=== PATIENT | female | born 1980 | race Two or more races ===

== ENCOUNTER → 2017-12-19 | Outpatient (CLI) | payer OTHER | END | disposition home or self-care (01) | LOC: US 08:46 | DX: Z34.82 Encounter for supervision of other normal pregnancy, second trimester (principal); Z3A.21 21 weeks gestation of pregnancy | CPT/HCPCS: 76805 ==

== ENCOUNTER 2018-03-20 11:14 | Observation (INO) | payer OTHER | END 2018-03-20 12:10 | disposition home or self-care (01) | LOC: 3 SO LND 11:14 | PROVIDERS: ADMIT Family Medicine; ATTEND Family Medicine | DX: O24.419 Gestational diabetes mellitus in pregnancy, unspecified control (principal); Z3A.33 33 weeks gestation of pregnancy | CPT/HCPCS: G0378; G0379; 59025 ==

== ENCOUNTER → 2018-03-20 | Outpatient (CLI) | payer OTHER ==
--- NOTE | 2018-03-20 16:57 | RAD ---
Ultrasound biophysical profile, 03/20/2018: HISTORY: Gestational diabetes The limited exam of the gravid uterus demonstrates a single fetus in a cephalic orientation. The heart rate is 139 bpm. The placenta lies anteriorly. A normal amount of amniotic fluid is present with the RETA calculated at 11.8. The weight was estimated at 5 pounds and 0 ounces +/- 12 ounces. The EDC based on today's measurements is 05/03/2018, and correlates well with the EDC of 04/30/2018 established on the 12/19/2017 ultrasound exam. The following biophysical profile scores were obtained: breathing movements-2 motion-2 tone-2 Amniotic fluid volume-2 Total score-8 out of 8: IMPRESSION: The ultrasound component of the biophysical profile score is 8 out of 8. Electronically signed by: Yves Otto MD (03/20/2018 4:53 PM) [facility]
== END | disposition home or self-care (01) ==
LOC: US 10:05
PROVIDERS: ATTEND Family Medicine
DX: O24.419 Gestational diabetes mellitus in pregnancy, unspecified control (principal); Z3A.38 38 weeks gestation of pregnancy
CPT/HCPCS: 76819

== ENCOUNTER 2018-04-03 16:02 | Observation (INO) | payer OTHER ==
--- NOTE | 2018-04-03 17:07 | RAD ---
Ultrasound biophysical profile, 04/03/2018: HISTORY: Gestational diabetes The limited exam of the gravid uterus demonstrates a single fetus in a cephalic orientation. The heart rate is 121 bpm. The placenta lies anteriorly. The amniotic fluid index is 11.5 which is within normal limits. The weight was estimated at 6 pounds and 5 ounces +/- 15. The following biophysical profile scores were obtained: breathing movements-2 motion-2 tone-2 Amniotic fluid volume-2 Total score-8 out of 8 IMPRESSION: The ultrasound component of the biophysical profile score is 8 out of 8. Electronically signed by: Yves Otto MD (04/03/2018 5:04 PM) [facility]
== END 2018-04-03 18:12 | disposition home or self-care (01) ==
LOC: US 16:02 → 3 SO LND 16:43
PROVIDERS: ADMIT Family Medicine; ATTEND Family Medicine
DX: O24.419 Gestational diabetes mellitus in pregnancy, unspecified control (principal); Z3A.35 35 weeks gestation of pregnancy
CPT/HCPCS: 76819; G0378; G0379; 59025

== ENCOUNTER 2018-04-17 11:31 | Observation (INO) | payer OTHER ==
--- NOTE | 2018-04-17 12:51 | RAD ---
Ultrasound biophysical profile, 04/17/2018: HISTORY: Gestational diabetes The limited exam of the gravid uterus demonstrates a single fetus in a cephalic orientation. The heart rate is 123 bpm. The weight was estimated at 7 pounds and 9 ounces +/- 18 ounces. The placenta lies anteriorly. Amniotic fluid index was calculated at 11.0. The following biophysical profile scores were obtained: breathing movements-2 motion-2 tone-2 Amniotic fluid volume-2 Total score-8 out of 8: IMPRESSION: The ultrasound component of the biophysical profile score is 8 out of 8. Electronically signed by: Yves Otto MD (04/17/2018 12:48 PM) [facility]
== END 2018-04-17 12:35 | disposition home or self-care (01) ==
LOC: 3 SO LND 11:31
PROVIDERS: ADMIT Family Medicine; ATTEND Family Medicine
DX: O24.419 Gestational diabetes mellitus in pregnancy, unspecified control (principal); Z3A.37 37 weeks gestation of pregnancy
CPT/HCPCS: 76819; G0378; G0379

== ENCOUNTER 2018-04-24 11:42 | Observation (INO) | payer OTHER ==
--- NOTE | 2018-04-24 16:18 | RAD ---
Ultrasound biophysical profile History: Gestational diabetes. Weekly biophysical profile. Comparison: Same examination April 17, 2018. Findings: Ultrasound biophysical profile was performed. Score is as follows: motion, 2 of 2. breathing, 2 of 2. tone, 2 of 2. Qualitative amniotic fluid volume, 2 of 2. Total score is 8 of 8. presentation is cephalic. Placenta is anterior. heart rate is 133 bpm. Amniotic fluid index is 10.3 cm. BPD is 9.41 cm corresponding to 38 weeks 2 days. HC is 33.5 cm, corresponding to 38 weeks 6 days. AC is 34.74 cm, corresponding to 39 weeks 5 days. FL is 7.75 cm, corresponding to 39 weeks 4 days. HC/AC ratio is 0.95, within normal limits. Average ultrasound age is 39 weeks 1 day. Estimated date of delivery based on current measurements is April 30, 2018. Estimated weight is 3768 +/- 558 g which is at 84 percentile. Clinical gestational age is 38 weeks 0 days. Impression: Biophysical profile score is 8 of 8. Electronically signed by: Joel Griffin MD (04/24/2018 4:15 PM) [facility]
== END 2018-04-24 13:10 | disposition home or self-care (01) ==
LOC: 3 SO LND 11:42
PROVIDERS: ADMIT Family Medicine; ATTEND Family Medicine
DX: O24.410 Gestational diabetes mellitus in pregnancy, diet controlled (principal); Z3A.38 38 weeks gestation of pregnancy
CPT/HCPCS: 76819; G0378; G0379

== ENCOUNTER 2018-05-01 14:58 | Observation (INO) | payer OTHER ==
--- NOTE | 2018-05-01 16:59 | RAD ---
Ultrasound biophysical profile exam, 05/01/2018: HISTORY: Gestational diabetes The limited exam of the gravid uterus demonstrates a single fetus in a cephalic orientation. The heart rate is 135 bpm. The weight was estimated at 8 pounds and 8 ounces +/- 20 ounces. The placenta lies anteriorly. The following biophysical profile scores were obtained: breathing movements-2 motion-2 tone-2 Amniotic fluid volume-2 Total score-8 out of 8 IMPRESSION: The ultrasound component of the biophysical profile score is 8 out of 8. Electronically signed by: Yves Otto MD (05/01/2018 4:55 PM) [facility]
== END 2018-05-01 17:25 | disposition home or self-care (01) ==
LOC: 3 SO LND 14:58
PROVIDERS: ADMIT Family Medicine; ATTEND Family Medicine
DX: O24.429 Gestational diabetes mellitus in childbirth, unspecified control (principal); Z37.9 Outcome of delivery, unspecified; Z3A.39 39 weeks gestation of pregnancy
CPT/HCPCS: 76819; G0378; G0379; 59025

== ENCOUNTER 2018-05-01 20:17 | Inpatient (IN) | payer OTHER ==
[~2018-05-01] VITALS: Ht 152.4 cm; Wt 97.6 kg
[2018-05-01] MEDS ORDERED: IV RINGERS,LACTATED 1000ML 1,000 ML IV SCH (20:18)
[2018-05-01] MEDS ORDERED: ONDANSETRON PF 4 MG/2 ML VIAL. IV PRN (20:30)
[2018-05-01] MEDS ORDERED: LIDOCAINE 1% PF 30 ML VIAL. INJ PRN (20:30)
[2018-05-01] MEDS ORDERED: CITRIC ACID/SODIUM CITRATE 30 ML SOLUTION. PO PRN (20:30)
[2018-05-01] MEDS ORDERED: OXYTOCIN 30 UNIT/500 ML PREMIX 500 ML IV PRN (20:30)
[2018-05-01] MEDS ORDERED: fentaNYL PF VIAL 100 MCG/2 ML VIAL IV PRN ×2 (20:30)
[2018-05-01] MEDS ORDERED: TERBUTALINE 1 MG/ML VIAL. SQ PRN (20:30)
[2018-05-01] MEDS ORDERED: ACETAMINOPHEN 325 MG TABLET. PO PRN (20:30)
[2018-05-01] MEDS ORDERED: BUTORPHANOL 2 MG/ML VIAL. IV PRN (20:30)
[2018-05-01] MEDS ORDERED: 0.9 % SODIUM CHLORIDE 10 ML DISP.SYRIN. IV PRN (20:30)
[2018-05-01 20:44] VITALS: BP 150/83
[2018-05-01] MEDS ORDERED: DINOPROSTONE 10 MG SUPP.VAG VG ONE (21:00)
[2018-05-01 21:10] LABS: BASO # 0.1 x10^3/uL (0.0-0.2); BASO % 1 % (0-3); EOS # 0.1 x10^3/uL (0.0-0.7); EOS % 1 % (0-3); HEMATOCRIT 35.6 % (36.0-47.0); HEMOGLOBIN 12.4 g/dL (12.0-15.5); LYMPH # 1.8 x10^3/uL (1.0-4.8); LYMPH % 21 % (24-48); MEAN CORPUSCULAR HEMOGLOBIN 30 pg (25-35); MEAN CORPUSCULAR HGB CONC 35 g/dL (31-37); MEAN CORPUSCULAR VOLUME 85 fL (79-100); MONO # 0.5 x10^3/uL (0.0-1.1); MONO % 6 % (0-9); NEUT # 6.2 x10^3uL (1.8-7.7); NEUT % 71 % (31-73); PLATELET COUNT 211 x10^3/uL (140-400); RED CELL DISTRIBUTION WIDTH 14.8 % (11.5-14.5); WHITE BLOOD COUNT 8.7 x10^3/uL (4.0-11.0)
--- NOTE | 2018-05-02 07:02 | PDOC1 ---
OB - History Hx of Present Care: Good Care Ultrasounds: Normal mid trimester US Obstetrical Complications: Gestational Diabetes Medical Complications: None Past Family/Social History * Past Medical, Surgical, Family and Obstetric Histories reviewed from chart. Blood Type: B+ Rubella: Immune RPR/VDRL: Negative GBS Status: Negative HBsAG: Negative OB - Chief Complaint & HPI Date of Admission: Date of Admission: May 01, 2018 at 20:17 Chief Complaint/History : 3 Para: 2 EDC: May 08, 2018 EGA: 39.1 Reason for admission: induction of labor Indication for induction: medical complication Admission Nurse Assessment Rev: No OB - Admission Exam Physical Exam Vitals: VS - Last 72 Hours, by Label Date Time Temp Pulse Resp B/P (MAP) Pulse Ox O2 Delivery O2 Flow Rate FiO2 05/01/18 20:44 98.1 62 18 150/83 (105) Room Air 98.1 HEENT: Normal, Nasal Mucosa Normal, Oropharynx Normal, Moist Membranes, Fontanelles Normal Heart: Regular Rate, No Murmurs, No Gallops, No Rubs Lungs: Clear, Equal Abdomen: Gravid Extremities: Normal Pulses, No tenderness or swelling Reflexes: Normal Cervical Dilatation: None Effacement: 50% Station: -3 Membranes: Intact Accelerations: Accelerations Present Decelerations: No decelerations Short Term Variability: Present Senior Living Variability: Moderate Contractions on Admission: None Date/Time Contractions Began;: 05/02/18 Frequency of Contractions: 0500 A/P Pt is a 38yo admitted for IOL 2/2 GDM 1)IOL- s/p Cervadil last night. Pt went into labor early this morning. CEFM 2)Pain mgmt- pt not interested in pain medication at this time 3)GBS negative 4)Pt is planning on 5)GDM- BS diet controlled JORI SUTTON MD May 02, 2018 07:02
--- NOTE | 2018-05-02 07:42 | PDOC ---
VAGINAL DELIVERY DATE DATE: 05/02/18 TIME 0717 : 3 Para: 3 EDC: May 08, 2018 EGA: 39.1 VAGINAL DELIVERY: VTX VACCUM ASSISTED: No PLACENTA: Spontaneous 8 and 9 SEX: Male WEIGHT Weight 3505g or 7 pound 12oz Nuchal Cord: Yes (body cord), Times 1, Tight Amniotic Fluid: Clear PAIN: Natural EPISIOTOMY: No EXTENSION: Yes (3rd degree perianal) REPAIRED WITH 3'0" vicryl EBL 350cc COMPLICATIONS None CONDITION Stable CR[employer] MACHINE O[employer] Dr. Sutton Signs of Intrauterine Infectio: None Shoulder Dystocia: No DIAGNOSIS Pt is a 38yo G3 now P3 s/p induced vaginal delivery at 39.1wga 2/2 GDM 1)- with 3rd degree perianal repair 2)Pain mgmt- will have ibuprofen available for pain 3)GBS negative 4)Pt is planning on 5)GDM- BS diet controlled JORI SUTTON MD May 02, 2018 07:42
[2018-05-02] MEDS ORDERED: DOCUSATE SODIUM 100 MG CAPSULE. PO PRN (07:45)
[2018-05-02] MEDS ORDERED: SIMETHICONE 80 MG TAB.CHEW PO PRN (07:45)
[2018-05-02] MEDS ORDERED: ZOLPIDEM 5 MG TABLET. PO PRN (07:45)
[2018-05-02] MEDS ORDERED: MAG HYDROX/ALUMINUM HYD/SIMETH 30 ML ORAL.SUSP PO PRN (07:45)
[2018-05-02] MEDS ORDERED: MMR per PROTOCOL. MC PRN (07:45)
[2018-05-02] MEDS ORDERED: ACETAMINOPHEN 325 MG TABLET. PO PRN (07:45)
[2018-05-02] MEDS ORDERED: HYDROCORTISONE 1% TOPICAL OINTMENT 30GM TUBE. TP PRN (07:45)
[2018-05-02] MEDS ORDERED: diphenhydrAMINE HCL 25 MG CAPSULE PO PRN (07:45)
[2018-05-02] MEDS ORDERED: IBUPROFEN 400 MG TABLET. PO PRN (07:45)
[2018-05-02] MEDS ORDERED: PHENYLEPH/MINERAL OIL/PETROLAT RECTAL OINTMENT 28GM TUBE. RC PRN (07:45)
[2018-05-02] MEDS ORDERED: MAGNESIUM HYDROXIDE 2,400 MG/30 ML ORAL.SUSP. PO PRN (07:45)
[2018-05-02] MEDS ORDERED: OXYTOCIN 30 UNIT/500 ML PREMIX 500 ML IV PRN ×2 (07:45→08:00)
[2018-05-02] MEDS ORDERED: BENZOCAINE 20% TOPICAL AEROSOL SPRAY 57GM CAN. TP PRN (07:45)
[2018-05-02] MEDS ORDERED: 0.9 % SODIUM CHLORIDE 10 ML DISP.SYRIN. IV PRN (07:45)
[2018-05-02 10:54] VITALS: BP 128/83
[2018-05-02] MEDS: IBUPROFEN 400 MG TABLET. PO PRN (16:22)
[2018-05-02] MEDS ORDERED: DIPHTH,PERTUSS(ACELL),TET TOX 0.5 ML DISP.SYRIN. VAX IM ONE (17:15)
[2018-05-02 19:30] VITALS: BP 122/68
[2018-05-03 00:30] VITALS: BP 126/68
[2018-05-03 04:43] LABS: HEMATOCRIT 31.9 % (36.0-47.0); HEMOGLOBIN 10.9 g/dL (12.0-15.5); RED BLOOD COUNT 3.76 x10^6/uL (3.50-5.40); RED CELL DISTRIBUTION WIDTH 15.2 % (11.5-14.5); WHITE BLOOD COUNT 10.4 x10^3/uL (4.0-11.0)
[2018-05-03 05:38] VITALS: BP 123/72
[2018-05-03] MEDS ORDERED: FERROUS SULFATE 325 MG TABLET. PO SCH (08:00)
--- NOTE | 2018-05-03 08:40 | PDOC ---
OB Progress Note Date of Service 05/03/18 Time of Evaluation 0800 Date: 05/02/18 Time: 07 Notes Mom doing well. is going well. Pain is well controlled. No BM yet. Lochia is about the same as a period OB VITAL SIGNS: Temperature (97.9), Blood Pressure (123/72), Pulse (65), O2 Sat (97% RA) Lab Laboratory Tests Test 05/01/18 20:55 05/03/18 04:15 White Blood Count 8.7 x10^3/uL (4.0-11.0) 10.4 x10^3/uL (4.0-11.0) Red Blood Count 4.20 x10^6/uL (3.50-5.40) 3.76 x10^6/uL (3.50-5.40) Hemoglobin 12.4 g/dL (12.0-15.5) 10.9 g/dL (12.0-15.5) Hematocrit 35.6 % (36.0-47.0) 31.9 % (36.0-47.0) Mean Corpuscular Volume 85 fL (79-100) 85 fL (79-100) Mean Corpuscular Hemoglobin 30 pg (25-35) 29 pg (25-35) Mean Corpuscular Hemoglobin Concent 35 g/dL (31-37) 34 g/dL (31-37) Red Cell Distribution Width 14.8 % (11.5-14.5) 15.2 % (11.5-14.5) Platelet Count 211 x10^3/uL (140-400) 178 x10^3/uL (140-400) Neutrophils (%) (Auto) 71 % (31-73) Lymphocytes (%) (Auto) 21 % (24-48) Monocytes (%) (Auto) 6 % (0-9) Eosinophils (%) (Auto) 1 % (0-3) Basophils (%) (Auto) 1 % (0-3) Neutrophils # (Auto) 6.2 x10^3uL (1.8-7.7) Lymphocytes # (Auto) 1.8 x10^3/uL (1.0-4.8) Monocytes # (Auto) 0.5 x10^3/uL (0.0-1.1) Eosinophils # (Auto) 0.1 x10^3/uL (0.0-0.7) Basophils # (Auto) 0.1 x10^3/uL (0.0-0.2) Treponema pallidum Antibody Nonreactive (Nonreactive) Laboratory Tests Test 05/03/18 04:15 White Blood Count 10.4 x10^3/uL (4.0-11.0) Red Blood Count 3.76 x10^6/uL (3.50-5.40) Hemoglobin 10.9 g/dL (12.0-15.5) Hematocrit 31.9 % (36.0-47.0) Mean Corpuscular Volume 85 fL (79-100) Mean Corpuscular Hemoglobin 29 pg (25-35) Mean Corpuscular Hemoglobin Concent 34 g/dL (31-37) Red Cell Distribution Width 15.2 % (11.5-14.5) Platelet Count 178 x10^3/uL (140-400) Medications Current Medications Sodium Chloride (Normal Saline Flush) 3 ml QSHIFT PRN IV AFTER MEDS AND BLOOD DRAWS; Start 05/01/18 at 20:30; Stop 05/02/18 at 11:08; Status DC Ringer's Solution 1,000 ml @ 125 mls/hr Q8H IV Last administered on 05/01/18at 21:02; Start 05/01/18 at 20:18; Stop 05/02/18 at 11:08; Status DC Butorphanol Tartrate (Stadol) 2 mg PRN Q1HR PRN IV Severe labor pain; Start at 20:30; Stop 05/02/18 at 11:08; Status DC Fentanyl Citrate (Fentanyl 2ml Vial) 50 mcg PRN Q30MIN PRN IV Mild to moderate pain; Start 05/01/18 at 20:30; Stop 05/02/18 at 11:08; Status DC Fentanyl Citrate (Fentanyl 2ml Vial) 100 mcg PRN Q30MIN PRN IV Severe pain; Start 05/01/18 at 20:30; Stop 05/02/18 at 11:08; Status DC Acetaminophen (Tylenol) 650 mg PRN Q6HRS PRN PO MILD PAIN / TEMP; Start at 20:30 Ondansetron HCl (Zofran) 4 mg PRN Q4HRS PRN IV NAUSEA/VOMITING; Start 05/01/18 at 20:30; Stop 05/02/18 at 11:08; Status DC Citric Acid/ Sodium Citrate (Bicitra) 30 ml 1X PRN PRN PO DYSPEPSIA; Start 05/01/18 at 20:30; Stop 05/02/18 at 11:08; Status DC Terbutaline Sulfate (Brethine) 0.25 mg 1X PRN PRN SQ SEE COMMENTS; Start at 20:30; Stop 05/02/18 at 11:08; Status DC Lidocaine HCl (Xylocaine 1% Pf 30ml Vial) 30 ml 1X PRN PRN INJ SEE COMMENTS Last administered on 05/02/18at 07:55; Start 05/01/18 at 20:30; Stop 05/02/18 at 11:08; Status DC Oxytocin/Sodium Chloride 500 ml @ 0 mls/hr CONT PRN IV SEE I/O RECORD; Start 05/02/18 at 08:00; Stop 05/02/18 at 11:08; Status DC Oxytocin/Sodium Chloride 500 ml @ 0 mls/hr CONT PRN PRN IV Post delivery bleeding Last administered on 05/02/18at 07:54; Start 05/01/18 at 20:30; Stop at 11:08; Status DC Ibuprofen (Motrin) 800 mg PRN Q6HRS PRN PO MODERATE POST DELIVERY PAIN Last administered on 05/02/18at 16:22; Start 05/01/18 at 20:30 Dinoprostone (Cervidil) 10 mg 1X ONCE VG Last administered on 05/01/18at 21:29 ; Start 05/01/18 at 21:00; Stop 05/02/18 at 11:08; Status DC Sodium Chloride (Normal Saline Flush) 10 ml QSHIFT PRN IV AFTER MEDS AND BLOOD DRAWS; Start 05/02/18 at 07:45; Stop 05/02/18 at 11:08; Status DC Oxytocin/Sodium Chloride 500 ml @ 62.5 mls/hr CONT PRN IV SEE I/O RECORD; Start 05/02/18 at 07:45; Stop 05/02/18 at 11:08; Status DC Acetaminophen (Tylenol) 650 mg PRN Q6HRS PRN PO MILD PAIN / TEMP; Start at 07:45; Stop 05/02/18 at 11:08; Status DC Ibuprofen (Motrin) 800 mg PRN Q8HRS PRN PO INFLAMMATION/PAIN PREVENTION Last administered on 05/02/18at 09:51; Start 05/02/18 at 07:45; Stop 05/02/18 at 11:08 ; Status DC Docusate Sodium (Colace) 100 mg PRN BID PRN PO CONSTIPATION; Start 05/02/18 at 07:45 Magnesium Hydroxide (Milk Of Magnesia) 2,400 mg PRN DAILY PRN PO CONSTIPATION; Start 05/02/18 at 07:45 Al Hydroxide/Mg Hydroxide (Mylanta Plus Xs) 30 ml PRN Q4HRS PRN PO HEARTBURN / GAS; Start 05/02/18 at 07:45 Simethicone (Gas-X) 80 mg PRN AFTMEALHC PRN PO GAS / BLOATING; Start 05/02/18 at 07:45 Diphenhydramine HCl (Benadryl) 25 mg PRN Q6HRS PRN PO ITCHING; Start 05/02/18 at 07:45 Benzocaine (Americaine) 1 spray PRN QID PRN TP TOPICAL PAIN Last administered on 05/02/18at 09:50; Start 05/02/18 at 07:45 Phenyleph/Shark Oil/Min Oil/Petrol (Preparation H) 1 lisa PRN QID PRN RC RECTAL PAIN; Start 05/02/18 at 07:45 Hydrocortisone (Cortaid) 1 lisa PRN QID PRN TP PERINEAL PAIN; Start 05/02/18 at 07:45 Ferrous Sulfate (Feosol) 325 mg BIDWMEALS PO ; Start 05/03/18 at 08:00 Zolpidem Tartrate (Ambien) 5 mg PRN QHS PRN PO INSOMNIA, MAY REPEAT X1; Start 05/02/18 at 07:45 Info (Do NOT chart on this placeholder) 1 ea 1X PRN PRN MC SEE COMMENTS; Start 05/02/18 at 07:45 Info (Do NOT chart on this placeholder) 1 ea 1X PRN PRN MC SEE COMMENTS; Start 05/02/18 at 07:45; Stop 05/02/18 at 11:08; Status DC Diphtheria/ Tetanus/Acell Pertussis (Boostrix) 0.5 ml ONCE ONCE VAX IM ; Start 05/02/18 at 17:15; Stop 05/02/18 at 17:16; Status DC Exam GEN: NAD, AOx3 HEENT: MMM, EOMI, no scleral icterus/injection Cardiac: RRR, no M/R/G Lungs: CTAB, regular breathing rate and effort Abd: fundal height approximately umbilicus Ext: no erythema/edema LE bilaterally Assessment Pt is a 38yo G3 now P3 s/p induced vaginal delivery at 39.1wga 2/2 GDM 1)- with 3rd degree perianal repair 2)Pain mgmt- continue Ibuprofen 3)GBS negative 4)Pt is 5)GDM- BS diet controlled 6)Anemia- continue Ferrous Sulfate JORI SUTTON MD May 03, 2018 08:40
[2018-05-03 10:00] VITALS: BP 111/53
[2018-05-03 13:45] VITALS: BP 126/66
[2018-05-03 18:44] VITALS: BP 122/70
[2018-05-03 22:17] VITALS: BP 107/57
[2018-05-04 05:50] VITALS: BP 126/81
[2018-05-04] MEDS: IBUPROFEN 400 MG TABLET. PO PRN (08:21)
--- NOTE | 2018-05-04 08:44 | PDOC3 ---
OB DISCHARGE SUMMARY DATE OF ADMISSION: 05/01/18 DATE OF DISCHARGE: 05/04/18 REASON FOR ADMISSION: Induction of labor PROCEDURES: Mgmt of OB Complications INTRAPARTUM PROCEDURES: Spontanous Vag Deliv, Perineal Laceration DISCHARGE DIAGNOSIS: Term Delivered DISCHARGE INFORMATION: Activity (As tolerated), Diet (Regular), Medications ( Ferrous Sulfate 325mg qday, Ibuprofen 800mg TID prn pain), Instructions (Please follow up with Dr. Sutton in 4-6 weeks), Discharge to (Home) HOSPITAL COURSE Pt is a 38yo G3 now P3 s/p induced vaginal delivery at 39.1wga 2/2 GDM 1)- with 3rd degree perianal repair 2)Pain mgmt- continue Ibuprofen 3)GBS negative 4)Pt is 5)GDM- BS diet controlled 6)Anemia- continue Ferrous Sulfate JORI SUTTON MD May 04, 2018 08:44
[2018-05-04 11:00] VITALS: BP 121/67
== END 2018-05-04 11:15 | disposition home or self-care (01) | DRG 768 ==
LOC: 3 SO LND 20:17 → 3 NORTH 05-02 10:20
PROVIDERS: ADMIT Family Medicine; ATTEND Family Medicine
PROC: 10E0XZZ Delivery of Products of Conception, External Approach (ICD-10-PCS; principal; 2018-05-01)
PROC: 0DQR0ZZ Repair Anal Sphincter, Open Approach (ICD-10-PCS; 2018-05-01)
PROC: 3E0P7VZ Introduction of Hormone into Female Reproductive, Via Natural or Artificial Opening (ICD-10-PCS; 2018-05-01)
DX: O24.420 Gestational diabetes mellitus in childbirth, diet controlled (principal); Z37.0 Single live birth; O70.20 Third degree perineal laceration during delivery, unspecified; O69.1XX0 Labor and delivery complicated by cord around neck, with compression, not applicable or unspecified; O99.02 Anemia complicating childbirth; D64.9 Anemia, unspecified; Z3A.39 39 weeks gestation of pregnancy
CPT/HCPCS: 36415; 85025; 85027; 86592; 86850; 86900; 86901; 90715; J2590; J7120